=== PATIENT | female | born 1980 | race Caucasian/White ===

== ENCOUNTER 2019-03-28 19:55 | Emergency (ER) | payer MEDICAID ==
[~2019-03-28] VITALS: Ht 162.6 cm; Wt 122.5 kg
--- NOTE | 2019-03-28 20:16 | NUR ---
Patient triaged and placed in waiting room. VSS and patient appears in no acute distress at this time. Accompanied by family, awaiting available bed, and MD notified of need for MSE.
[2019-03-28 20:51] LABS: BILIRUBIN,URINE NEGATIVE (NEGATIVE); BLOOD, URINE NEGATIVE (NEGATIVE); COLOR,URINE YELLOW (YELLOW); GLUCOSE,URINE NEGATIVE (NEGATIVE); KETONES,URINE NEGATIVE (NEGATIVE); LEUKOCYTE ESTERASE ,URINE NEGATIVE (NEGATIVE); NITRITE, URINE NEGATIVE (NEGATIVE); PROTEIN URINE NEGATIVE (NEGATIVE)
[2019-03-28 20:58] LABS: CLARITY/URINE SLIGHTLY HAZY (CLEAR)
--- NOTE | 2019-03-28 22:24 | NUR ---
Left without being seen @ [id number]
== END 2019-03-28 22:24 | disposition left against medical advice (07) ==
LOC: SED 19:55
DX: R05 Cough (principal); Z53.21 Procedure and treatment not carried out due to patient leaving prior to being seen by health care provider
CPT/HCPCS: 36415; 81003; 86710